=== PATIENT | female | born 1985 | race Caucasian/White ===

== ENCOUNTER 2017-08-24 21:00 | Emergency (ER) | payer OTHER, SELFPAY ==
[2017-08-24 21:03] VITALS: BP 133/87; PULSE 89; RESP 17; TEMP 36.1; O2SAT 100; BMI 33.3
--- NOTE | 2017-08-24 22:33 | ED.VISSUMM ---
- ER Visit Summary Date of Service: 08/24/17 Chief Complaint: Right calf pain History of Present Illness: The patient is a [address] Gonzales and Dr. Kaplan. She is a at 24 weeks 6 days. States that she flew to [facility] August 10 and return August 20. She complains of right leg pain that began today. It is a throbbing, aching pain is 10 out of 10 with walking out of 10 at rest. She denies any paresthesias or weakness. She denies any recent injury. Patient denies any vaginal bleeding. She has had normal movement. Review of systems is negative. No chest pain or shortness of breath. Physical Examination: Vitals: Stable. Afebrile. General: Well-nourished and well-developed. Head: Normocephalic atraumatic. Neck: Supple, no lymphadenopathy. No JVD. Nontender. Cardiovascular: Regular rate and rhythm. No murmurs. Respiratory: No respiratory distress. Clear to auscultation bilaterally. Abdominal: Soft, nontender, nondistended, normal bowel sounds. No guarding, rebound, or peritoneal signs. Gravid uterus. Back: Nontender. Extremities: Mild tenderness palpation over the right calf and right popliteal fossa. There are varicose veins present. There is no palpable cord. There is no edema.. Skin: Normal color, no rash. Neurologic: Alert and oriented ?3. Cranial nerves II through XII are intact. Normal strength and sensation. Psych: Normal affect. Emergency Department Course and Treatment: I discussed the patient the possibility of getting a subcu dose of Lovenox and returning tomorrow for a Doppler. She asked that I speak with her OB first. Treatment Plan: I spoke with Dr. Mast, covering for her OB, who asked that I sent her to [facility] for evaluation. Patient will be discharged instructions to go there now. Disposition: To home in improved and stable condition. Impression: 1. Right calf pain. 2. Second trimester . This note was generated with Hachimen[employer] software. It may contain incorrect words, spelling, and punctuation that were not noted in review of the chart prior to signing ED Disposition - Plan for ED Patient: Disposition: Home or Assisted Living Chief Complaint: Lower Extremity Injury Instructions: ED DVT Referrals: Doctor,Your [STAFF PHYSICIAN] - As soon as possible
[2017-08-24 22:41] VITALS: RESP 16
== END 2017-08-24 22:42 | disposition home or self-care (01) ==
LOC: ED 21:35
PROVIDERS: Emergency Provider Emergency Medicine; Family Provider Family Medicine; PCP Family Medicine
DX: O99.89 Other specified diseases and conditions complicating pregnancy, childbirth and the puerperium (principal); M79.661 Pain in right lower leg; Z3A.24 24 weeks gestation of pregnancy
CPT/HCPCS: 99282

== ENCOUNTER 2019-05-19 14:41 | Emergency (ER) | payer OTHER, SELFPAY ==
[2019-05-19 14:43] VITALS: BP 135/79; PULSE 117; RESP 14; TEMP 36.6; O2SAT 98; BMI 29.8
--- NOTE | 2019-05-19 15:11 | ED.DCSUM_ITS ---
- ER Visit Summary Date of Service: 05/19/19 Chief Complaint: Nausea, vomiting and diarrhea with muscle cramping History of Present Illness: The patient is a 33 F seen in past medical history. Patient states since yesterday she has had nausea, vomiting diarrhea. Family members with similar symptoms. She is concerned she is dehydrated because says she is having a lot of muscle cramping. Really denies any nominal pain. Has had a low-grade fever of 100 with some chills. No dysuria but states she is u rinating less now. She has been able to keep down very little fluid. Physical Examination: Young female no acute distress. Vital signs are stable and afebrile. She is tachycardic at 117. H EENT exam dry mucous membranes. Otherwise unremarkable. Neck nontender. No lymphadenopathy. Lungs clear to auscultation bilaterally. Heart tachycardic rate about 115 no murmur. Abdomen is soft and nontender normal bowel sounds no peritoneal signs. No signs of obstruction. Both right upper and right lower quadrant unremarkable. No hernias or masses. Patient is moving all 4 extremities. Neurovascular intact. Back nontender. Skin unremarkable. Neurologically she is awake and alert with no focal motor deficits. Test Results:. BMP is normal. No electrolyte abnormalities. No severe dehydration with a normal BUN and creatinine. Normal gap. Emergency Department Course and Treatment: Patient's history and exam are consistent with viral gastroenteritis with mild dehydration. She will be treated with 2 L normal saline. IV Zofran and a p.o. fluid challenge. Repeat exam at 1629 PM patient is doing well. Patient is eating ice. She is had almost a liter and is doing better. The second liter fluid will be run and she will be discharged to home. Treatment Plan: Zofran as needed for nausea. Plenty of fluids and rest. Increase diet slowly. Return if worse. Follow-up if not improving. Disposition: Discharge Impression: Viral gastroenteritis Mild dehydration This note was generated with setObject dictation software. It may contain incorrect words, spelling, and punctuation that were not noted in review of the chart prior to signing ED Disposition - Plan for ED Patient: Disposition: Home or Assisted Living Instructions: GASTROENTERITIS, Viral (5y-Adult) Prescriptions: Ondansetron [Zofran Odt] 4 mg PO Q8H PRN PRN #7 tab PRN Reason: Nausea Prescription Printed Referrals: Tony Gonzales MD [Primary Care Provider] - 1-2 Days if not improving Additional Instructions: Plenty of fluids and rest. Zofran as needed for nausea. Follow-up with your doctor if not improving return if worse.
--- NOTE | 2019-05-19 15:13 | ED.DEP ---
ED Disposition - Plan for ED Patient: Disposition: Home or Assisted Living Instructions: GASTROENTERITIS, Viral (5y-Adult) Prescriptions: Ondansetron [Zofran Odt] 4 mg PO Q8H PRN PRN #7 tab PRN Reason: Nausea Prescription Printed Referrals: Tony Gonzales MD [Primary Care Provider] - 1-2 Days if not improving Additional Instructions: Plenty of fluids and rest. Zofran as needed for nausea. Follow-up with your doctor if not improving return if worse.
[2019-05-19] MEDS: 0.9% Normal Saline 1,000 ML 1000 ML IV ×2 (15:22→16:22)
[2019-05-19] MEDS: Ondansetron 4 MG/2 ML Vial IV (15:23)
[2019-05-19 16:06] LABS: Anion Gap 7 (5-15); BUN 17 mg/dL (7-18); Calcium,Total 9.3 mg/dL (8.5-10.1); Chloride 105 mmol/L (98-107); Creatinine, Serum 0.94 mg/dL (0.55-1.02); EST Glomerular Filtration Rate 72 mL/min (>60); Est Glom Filt Rate - Afr Amer 87 mL/min (>60); Estimated Creatinine Clearance 78.94 ml/min; Glucose 103 mg/dL (74-106); Sodium Level 137 mmol/L (136-145)
[2019-05-19] MEDS: Acetaminophen 500 MG Tablet 1000 MG PO (16:53)
[2019-05-19 17:05] VITALS: RESP 16
[2019-05-19 17:36] VITALS: BP 118/74; PULSE 80; RESP 15; O2SAT 100
--- NOTE | 2019-05-19 17:36 | ED.RN ---
PT GIVEN WRITTEN AND VERBAL DISCHARGE INSTRUCTIONS AND HOME GOING PRESCRIPTIONS. PT EDUCATED ON GASTROENTERITIS AND S AND SX OF WHEN TO RETURN TO ED. PT IV D/C AND COVERED WITH 2X2 GAUZE AND PAPER TAPE. PT DENIES ANY FURTHER QUESTIONS, DRESSES SELF AND AMBULATES OUT OF DEPT BY SELF.
== END 2019-05-19 17:45 | disposition home or self-care (01) ==
LOC: ED 15:17
PROVIDERS: Emergency Provider Emergency Medicine; Family Provider Family Medicine; PCP Family Medicine
DX: A08.4 Viral intestinal infection, unspecified (principal); E86.0 Dehydration
CPT/HCPCS: 80048; 96361; 96374; 99284; J7030; A4216; J2405